=== PATIENT | female | born 1970 | race American Indian/Alaskan Native ===

== ENCOUNTER 2017-07-18 11:52 | Emergency (ER) | payer OTHER ==
[2017-07-18 13:57] VITALS: BP 145/88
[2017-07-18] MEDS ORDERED: PEPCID PO ONE (14:07)
[2017-07-18] MEDS ORDERED: DECADRON PO ONE (14:07)
--- NOTE | 2017-07-18 14:27 | Emergency Department Report ---
HPI - General Chief Complaint: Allergic Reaction - HPI HPI: 47 y/o F with a PMHx of HTN, RENATA, fibromalgia, and headaches presents to the ED with allergic reaction symptoms. She states that she went out to the mailbox yesterday and she felt something come close to her mouth, but is not sure what it was and then she came back into the house and she stated to notice itching, swelling, redness of the skin. She denies a burning sensation of the skin. Pt also states that she recently finished a course of macrobid for a UTI, she states that she has taken this antibitoic multiple times in the past without any issues. She denies any new soaps, lotions, detergents, or deodrants. She denies any peeling of the skin, mucousal blisters, SOB, fever, chills, resp distress, or feelings of the throat closing up. Pt has been taking benadryl without any relief. Hx of hysterectomy. Allergies to acetaminophen, aspirin, morphine, and oxycodone. ED Past Medical Hx - Past Medical History Previous Medical History?: Yes Hx Hypertension: Yes Hx Headaches / Migraines: Yes - Surgical History Past Surgical History?: Yes Additional Surgical History: Right Foot - Social History Smoking Status: Never Smoker Substance Use Type: None - Medications Home Medications: Home Medications Medication Instructions Recorded Confirmed Last Taken Type Famotidine [Pepcid] 20 mg PO DAILY PRN #10 tablet 07/18/17 Unknown Rx Hydroxyzine HCl 50 mg PO Q6HR PRN #20 tablet 07/18/17 Unknown Rx ED Review of Systems ROS: Stated complaint: POSSIBLE ALLERGIC REACTION Other details as noted in HPI Constitutional: denies: chills, fever Eyes: denies: eye pain, eye discharge, vision change ENT: other (mild lip swelling reported). denies: ear pain, throat pain Respiratory: denies: cough, shortness of breath, wheezing Cardiovascular: denies: chest pain, palpitations Gastrointestinal: denies: abdominal pain, nausea, diarrhea Genitourinary: denies: urgency, dysuria, discharge Musculoskeletal: denies: back pain, joint swelling, arthralgia Skin: rash (redness) Neurological: denies: headache, weakness, paresthesias Psychiatric: denies: anxiety, depression Physical Exam - Physical Exam Vital Signs: Vital Signs 07/18/17 07/18/17 11:58 13:53 Temperature 98.4 F Pulse Rate 75 67 Respiratory 24 20 Rate Blood Pressure 147/97 145/88 O2 Sat by Pulse 98 98 Oximetry General: pt was alert and oriented and did not appear to be in respiratory distress at the time of examination, she was speaking in full complete sentences no use of accessory muscles. Physical Exam: There was mild swelling of the lips noted, no blisters or mucoual involvement. There was diffuse red wheals/rash noted throughout the body. The wrists were swollen and red, mildly warm to touch. There was no flaking or peeling of the skin. The eyes were EOMI and PERRLA, pupils were reactive to light b/l. Airway was patent, there was no evidence of obstruction of difficulty breathing. Both cardiac and pulmonary examinations were unremarkable. ED Course Vital Signs 07/18/17 07/18/17 11:58 13:53 Temperature 98.4 F Pulse Rate 75 67 Respiratory 24 20 Rate Blood Pressure 147/97 145/88 O2 Sat by Pulse 98 98 Oximetry ED Medical Decision Making - Medical Decision Making This case was discussed with Dr. Gregory. He recommended Decadron 10 mg Injection with pepcid 20 mg in the ED. Pt reported to improvement soon after these medications were given. Pt was discharged him with pepcid and hydroxyzine for continued relief. The importance of prompt follow-up was explained to the patient. I have educated her that if she starts to notice peeling of the skin, SOB, mucosal involvement she needs to come back to the ER immediately as this is emegerent. Pt reports to verbal understanding. Pt was given referrals to dermatology, puzzle assembler, and PCP for follow-up within the next few days. She was discharged from the ED in no resp distress, alert and oriented, and speaking in full sentences. She is hemodyncamialy and neurovascaulry intact. Critical care attestation.: If time is entered above; I have spent that time in minutes in the direct care of this critically ill patient, excluding procedure time. ED Disposition Clinical Impression: Allergic reaction Qualifiers: Encounter type: initial encounter Qualified Code(s): T78.40XA - Allergy, unspecified, initial encounter Disposition: - TO HOME OR SELFCARE Is pt being admited?: No Does the pt Need Aspirin: No Condition: Stable Instructions: Famotidine (By mouth), Hydroxyzine Hydrochloride (By mouth), Urticaria (ED) Additional Instructions: Please be advised that the prescribed medications that were given to you today may make you drowsy. Please do not drive or operate heavy machinery. Please follow-up with PCP within 3 days. [employer] and dermatology referrals given to you today. Please return immediately to the ER if your symptoms worsen: such as chest tightness, SOB, peeling of the skin, mucosa involvement with blisters, fever or chills. This is emergent. Prescriptions: Famotidine [Pepcid] 20 mg PO DAILY PRN #10 tablet PRN Reason: itching Hydroxyzine HCl 50 mg PO Q6HR PRN #20 tablet PRN Reason: itching Referrals: [facility]– [place][Note 2] [Outside] - 3-5 Days [facility] [Outside] - 3-5 Days GEORGE SOLER MD [Referring] - 3-5 Days PRIMARY [facility]ARE, [Primary Care Provider] - 3-5 Days MANDY MÉNDEZ MD [Staff Physician] - 3-5 Days Forms: Work/School Release Form(ED)
== END 2017-07-18 14:51 | disposition home or self-care (01) ==
LOC: ED 11:52
DX: T78.40XA Allergy, unspecified, initial encounter (principal); Y92.9 Unspecified place or not applicable; I10 Essential (primary) hypertension; G43.909 Migraine, unspecified, not intractable, without status migrainosus
CPT/HCPCS: 99282; J8540